=== PATIENT | female | born 1945 | race Caucasian/White ===

== ENCOUNTER 2021-11-27 18:58 | Emergency (ER) | payer MEDICARE ==
[~2021-11-27] VITALS: Ht 165.1 cm; Wt 83.9 kg
[2021-11-27 19:59] VITALS: BP 153/84
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
--- NOTE | 2021-11-27 20:05 | NUR ---
CHILDCARE PROVIDER AT PT'S BEDSIDE
--- NOTE | 2021-11-27 21:04 | NUR ---
TICKETING CLERK AT PT'S BEDSIDE
[2021-11-27] MEDS ORDERED: HYDROCODONE/APAP 5/325MG TABLET PO ONE (21:30)
[2021-11-27] MEDS ORDERED: HYDROCODONE/APAP 5/325MG TABLET ONE (21:56)
--- NOTE | 2021-11-27 22:32 | NUR ---
EMT AT PT'S BEDSIDE FOR JERICHO WRAP TO RIGHT FOOT
[2021-11-27] MEDS ORDERED: IBUP-1955 PO (22:38)
--- NOTE | 2021-11-27 23:19 | NUR ---
Patient discharged to home in stable condition. Written and verbal after care instructions given. Patient verbalizes understanding of instruction. pt assisted to car on wheelchair
== END 2021-11-27 23:20 | disposition home or self-care (01) ==
LOC: ER 19:41
DX: S93.401A Sprain of unspecified ligament of right ankle, initial encounter (principal); I10 Essential (primary) hypertension; E78.00 Pure hypercholesterolemia, unspecified; E11.9 Type 2 diabetes mellitus without complications; Z79.1 Long term (current) use of non-steroidal anti-inflammatories (NSAID); W01.0XXA Fall on same level from slipping, tripping and stumbling without subsequent striking against object, initial encounter; Y93.89 Activity, other specified; Y92.89 Other specified places as the place of occurrence of the external cause; Y99.8 Other external cause status
CPT/HCPCS: 73590-TC; 73610-TC; 73630-TC